=== PATIENT | female | born 1980 | race African-American/Black ===

== ENCOUNTER 2017-02-07 22:23 | Emergency (ER) | payer MEDICAID, OTHER ==
[~2017-02-07] VITALS: Ht 152.4 cm; Wt 80.0 kg
[2017-02-08] MEDS ORDERED: ACETAMINOPHEN WITH CODEINE 300/30MG TABLET PO ONE (00:30)
[2017-02-08 00:43] VITALS: BP 143/94
== END 2017-02-08 02:04 | disposition home or self-care (01) ==
LOC: ER 02-08 00:24
DX: S63.502A Unspecified sprain of left wrist, initial encounter (principal); M79.7 Fibromyalgia; E11.9 Type 2 diabetes mellitus without complications; M32.9 Systemic lupus erythematosus, unspecified; Z88.0 Allergy status to penicillin; X50.9XXA Other and unspecified overexertion or strenuous movements or postures, initial encounter; Y93.89 Activity, other specified; Y92.89 Other specified places as the place of occurrence of the external cause; Y99.8 Other external cause status
CPT/HCPCS: 29125; 73110; 73130; 81025; 99284

== ENCOUNTER 2017-10-30 20:23 | Emergency (ER) | payer MEDICAID, OTHER ==
[~2017-10-30] VITALS: Ht 157.5 cm; Wt 77.0 kg
[2017-10-31] MEDS ORDERED: LEVETIRACETAM 500MG PREMIX 100 ML IV ONE (00:45)
[2017-10-31] MEDS ORDERED: MORPHINE SULFATE 4 MG/ML CPJ (NOT FOR IM USE) IV ONE (00:45)
[2017-10-31] MEDS ORDERED: PROCHLORPERAZINE 10MG/2ML VIAL IV ONE (00:45)
[2017-10-31] MEDS ORDERED: MORPHINE SULFATE 2 MG/ML CPJ (NOT FOR IM USE) IV SCH (00:52)
[2017-10-31 00:58] LABS: CHLORIDE 104 mEq/L (98-107)
[2017-10-31 01:02] LABS: PROTHROMBIN TIME 10.7 sec (9.4-11.6)
[2017-10-31 01:04] LABS: CARBON DIOXIDE 28 mEq/L (21-32)
[2017-10-31 01:07] LABS: HEMATOCRIT 36.7 % (36.0-48.0); HEMOGLOBIN 12.1 g/dL (12.0-16.0); MEAN CORPUSCULAR HEMOGLOBIN 28.9 pg (28.0-32.0); MEAN CORPUSCULAR VOLUME 87.8 fL (81.0-99.0); PLATELET 318 x1000/uL (130-400); RED BLOOD CELL COUNT 4.18 mill/uL (4.2-5.4); RED CELL DISTRIBUTION WIDTH 13.3 % (11.6-14.6)
[2017-10-31] MEDS ORDERED: IOHEXOL-350 100 ML BOTTLE ONE (02:57)
[2017-10-31] MEDS ORDERED: KETOROLAC 30MG/ML VIAL IV ONE (03:30)
[2017-10-31] MEDS ORDERED: SODIUM CHLORIDE 0.9% 1000ML BAG (SEPSIS BOLUS) IV ONE (03:30)
[2017-10-31] MEDS ORDERED: DIPHENHYDRAMINE 50MG/ML VIAL IV ONE (03:30)
[2017-10-31] MEDS ORDERED: DEXAMETHASONE 10 MG/ML VIAL IV ONE (03:45)
[2017-10-31 05:19] VITALS: BP 105/70
== END 2017-10-31 05:40 | disposition home or self-care (01) ==
LOC: ER 20:39
DX: G40.909 Epilepsy, unspecified, not intractable, without status epilepticus (principal); R51 Headache; M32.9 Systemic lupus erythematosus, unspecified; M79.7 Fibromyalgia; Z86.79 Personal history of other diseases of the circulatory system; Z88.0 Allergy status to penicillin
CPT/HCPCS: 36415; 70496; 80048; 82962; 83735; 85027; 85610; 96365; 96375; 99285; J0780; J1100; J1953; J2270; Q9967; J7030

== ENCOUNTER 2018-04-23 09:58 | Emergency (ER) | payer MEDICAID, OTHER ==
[~2018-04-23] VITALS: Ht 152.4 cm; Wt 82.0 kg
[2018-04-23 10:41] LABS: CLARITY URINE CLOUDY (CLEAR); COLOR URINE RED (YELLOW); KETONES URINE 1+ (NEGATIVE); LEUKOCYTE ESTERASE URINE 3+ (NEGATIVE); NITRITE URINE NEGATIVE (NEGATIVE); OCCULT BLOOD URINE 3+ (NEGATIVE); PROTEIN URINE 1+ (NEGATIVE); SPECIFIC GRAVITY URINE 1.021 (1.005-1.030); UROBILINOGEN URINE 0.2 E.U./dL (0.2-1.0)
[2018-04-23 14:34] LABS: BASOPHILS % 0.4 % (0.0-2.0); HEMATOCRIT. 36.2 % (36.0-48.0); HEMOGLOBIN. 12.4 g/dL (12.0-16.0); LYMPHOCYTES % 11.8 % (20.0-50.0); MEAN CORPUSCULAR HEMOGLOBIN 29.5 pg (28.0-32.0); MEAN CORPUSCULAR VOLUME 86.4 fL (81.0-99.0); MEAN PLATELET VOLUME 7.6 fl (7.4-10.4); MONOCYTES % 3.8 % (2.0-8.0); PLATELET 347 x1000/uL (130-400); RED BLOOD CELL COUNT 4.19 mill/uL (4.2-5.4); RED CELL DISTRIBUTION WIDTH 12.9 % (11.6-14.6)
[2018-04-23 14:39] LABS: CHLORIDE 102 mEq/L (98-107)
[2018-04-23 15:04] LABS: B-HCG QUANTITATIVE 9354 mIU/mL (<3)
[2018-04-23] MEDS ORDERED: MORPHINE SULFATE 4 MG/ML CPJ (NOT FOR IM USE) IV STA (15:09)
[2018-04-23] MEDS ORDERED: SODIUM CHLORIDE 0.9% 1,000 ML IV ONE (15:09)
[2018-04-23] MEDS ORDERED: ONDANSETRON HCL 4MG/2ML VIAL IV STA (15:09)
[2018-04-23 15:37] LABS: INR 1.1; PARTIAL THROMBOPLASTIN TIME 31.5 sec (23.4-31.0)
[2018-04-23] MEDS ORDERED: NITROFURANTOIN 100MG M/M CAPSULE PO ONE (17:15)
[2018-04-23] MEDS ORDERED: MISOPROSTOL 200MCG TABLET PO ONE (17:15)
[2018-04-23 18:04] VITALS: BP 104/51
== END 2018-04-23 18:30 | disposition home or self-care (01) ==
LOC: ER 10:15 → CANRESERV 16:32 → ENRESERV 16:32 → CANBEDREQ 17:27 → ER 18:30
DX: O03.4 Incomplete spontaneous abortion without complication (principal); O23.41 Unspecified infection of urinary tract in pregnancy, first trimester; I10 Essential (primary) hypertension; F12.10 Cannabis abuse, uncomplicated; Z88.0 Allergy status to penicillin; Z3A.11 11 weeks gestation of pregnancy; Z88.6 Allergy status to analgesic agent
CPT/HCPCS: 36415; 76801; 76817; 80053; 81003; 84702; 85025; 85610; 85730; 86850; 86900; 86901; 87086; 93005; 96374; 96375; 99285; J2270; J2405; J7030; Z7610

== ENCOUNTER 2019-04-29 00:15 | Observation (INO) | payer MEDICAID ==
[~2019-04-29] VITALS: Ht 152.4 cm; Wt 90.7 kg
[2019-04-29] MEDS ORDERED: PY50 PO (01:04)
[2019-04-29] MEDS ORDERED: CHOL20004 PO (01:04)
[2019-04-29] MEDS ORDERED: PNV1TABL50 MT (01:05)
== END 2019-04-29 01:30 | disposition home or self-care (01) ==
LOC: 8 EST LDRP 00:15
PROVIDERS: ADMIT Obstetrics & Gynecology; ATTEND Obstetrics & Gynecology
DX: O26.893 Other specified pregnancy related conditions, third trimester (principal); R10.30 Lower abdominal pain, unspecified; R10.2 Pelvic and perineal pain; Z3A.38 38 weeks gestation of pregnancy
CPT/HCPCS: 99281; G0378